=== PATIENT | male | born 1960 | race Two or more races ===

== ENCOUNTER 2023-06-14 14:09 | Outpatient (CLI) | payer OTHER | END 2023-06-14 23:59 | disposition home or self-care (01) | LOC: MRI 14:09 | PROVIDERS: ATTEND Family Medicine | DX: M54.12 Radiculopathy, cervical region (principal); G96.191 Perineural cyst; M54.2 Cervicalgia | CPT/HCPCS: 72141 ==

== ENCOUNTER 2024-05-09 14:24 | Outpatient (CLI) | payer OTHER | END 2024-05-09 23:59 | disposition home or self-care (01) | LOC: MRI 14:24 | PROVIDERS: ATTEND Student in an Organized Health Care Education/Training Program | DX: M50.123 Cervical disc disorder at C6-C7 level with radiculopathy (principal); M47.22 Other spondylosis with radiculopathy, cervical region | CPT/HCPCS: 72141 ==